=== PATIENT | male | born 1950 | race Caucasian/White ===

== ENCOUNTER → 2018-03-18 | Outpatient (CLI) | payer MEDICARE, OTHER ==
--- NOTE | 2018-03-18 08:22 | CT ---
EXAMINATION TYPE: CT angio chest DATE OF EXAM: 03/18/2018 COMPARISON: 08/17/2016 HISTORY: 67-year-old male Follow up to thoracic aortic aneurysm TECHNIQUE: Contiguous axial scanning of the chest performed with IV Contrast, patient injected with 1 00 mL of Isovue 370. Coronal/sagittal MIP reconstructions performed. 3-D reconstructions generated on a dedicated independent workstation. CT DLP: 291.4 mGycm Automated exposure control for dose reduction was used. FINDINGS: Heart is normal size without pericardial effusion. Some mild coronary vessel calcifications are noted . -Aortic root is ectatic at 3.9 cm (measured on coronal series). -The ascending aorta is borderline ectatic at 3.5 cm. -Conventional arch vessel branching anatomy. -The upper descending thoracic aorta measures 2.7 cm, unchanged. The lower descending thoracic aorta measures 2.3 cm, within normal limits. No thoracic lymphadenopathy by CT size criteria. Continued mild diffuse bronchial wall thickening, that could represent bronchitis or asthma, and some strandy opacity suggestive of scarring at the inferior lingula. No consolidation or pleural effusion . Visualized upper abdomen shows no gross abnormality. Bones: Mild endplate spondylosis mid to lower thoracic spine. IMPRESSION: MEASURED ON CORONAL SERIES, THE AORTIC ROOT IS ECTATIC AT 3.9 CM, STABLE. ADDITIONALLY, THERE IS S TABLE BORDERLINE ECTASIA OF THE ASCENDING AORTA AT 3.5 CM AND NO EVIDENCE FOR ANEURYSM.
== END | disposition home or self-care (01) ==
LOC: RADCTMAIN 06:16
PROVIDERS: ATTEND Internal Medicine Interventional Cardiology
DX: I77.810 Thoracic aortic ectasia (principal)
CPT/HCPCS: 82565; 84520; 71275; 36415; Q9967

== ENCOUNTER → 2020-03-29 | Outpatient (CLI) | payer MEDICARE ==
[2020-03-29 08:14] LABS: African American GFR (CKD) >90 (>60 ml/min/1.73 sqM); Blood Urea Nitrogen 17 mg/dL (9-20); Non-African American GFR(CKD) >90 (>60 ml/min/1.73 sqM)
--- NOTE | 2020-03-29 10:31 | CT ---
EXAMINATION TYPE: CT angio chest DATE OF EXAM: 03/29/2020 COMPARISON: 03/18/2018 HISTORY: 69-year-old male I71.2 Thoracic aortic aneurysm TECHNIQUE: Contiguous axial scanning of the chest performed with IV Contrast, patient injected with 1 00 mL of Isovue 370. Coronal/sagittal MIP reconstructions performed. 3-D reconstructions generated on a dedicated independent workstation. CT DLP: 230.7 mGycm Automated exposure control for dose reduction was used. FINDINGS: Heart normal size with stable prominent fluid extending up along the pericardial recess along the tra lyubov, axial image 18. As measured on coronal series, aortic root is mildly aneurysmal at 4.1 cm versus 3.9 cm, previously. (Refer to coronal image 35). Ascending aorta borderline ectatic at 3.5 cm, stable. Conventional arch vessel branching anatomy. Upper descending thoracic aorta approximately stable at 2.8 cm. No evidence for aortic dissection. No consolidation or pleural effusion. Visualized upper abdomen shows no gross abnormal value. Bones: No osseous destructive process. IMPRESSION: 1. As measured on coronal series, the aortic root is mildly aneurysmal at 4.1 cm versus 3.9 cm, previ ously. 2. Stable borderline ectasia of the ascending aorta 3.5 cm.
== END ==
LOC: RADCTMAIN 07:38
PROVIDERS: ATTEND Internal Medicine Interventional Cardiology
DX: I71.2 Thoracic aortic aneurysm, without rupture (principal)
CPT/HCPCS: 82565; 84520; 71275; 36415; Q9967

== ENCOUNTER → 2020-07-09 | Outpatient (CLI) | payer MEDICARE ==
--- NOTE | 2020-07-09 07:39 | US ---
EXAMINATION TYPE: US thyroid st tissue head/neck DATE OF EXAM: 07/09/2020 COMPARISON: Carotid 2013. CTA chest March 29, 2020 CLINICAL HISTORY: E04.2 NONTOXIC MULTINODULAR GOITER. Goiter, pt states no known thyroid issues GLAND SIZE: Right Lobe: 5.3 x 1.4 x 1.6 cm Overall Parenchyma: homogenous Left Lobe: 4.6 x 1.7 x 1.2 cm Overall Parenchyma: homogeneous Isthmus Thickness: 0.3 cm NODULES RIGHT: # of nodules measured on right: 1 1. 2.0 X 0.9 x 1.1 cm isoechoic solid nodule at the mid pole with poorly defined margins; This nod ule is wider than tall and shows intranodular vascularity. Prior size: 1.7 x 1.2 x 1.2 cm Bilateral neck scanned, no evidence of lymphadenopathy. Single right thyroid nodule. Homogeneous normal-sized thyroid with possible 2.0 cm anterior mid to lower pole isoechoic solid nodu le not significantly changed from 2014 ultrasound accounting for technical differences. IMPRESSION: As above. No new greater than 1 cm nodules.
== END | disposition home or self-care (01) ==
LOC: RADUSWWP 07:09
PROVIDERS: ATTEND Internal Medicine Endocrinology, Diabetes & Metabolism
DX: E04.1 Nontoxic single thyroid nodule (principal)
CPT/HCPCS: 76536

== ENCOUNTER → 2021-04-26 | Outpatient (CLI) | payer MEDICARE ==
[2021-04-26 07:45] LABS: African American GFR (CKD) >90 (>60 ml/min/1.73 sqM); Blood Urea Nitrogen 17 mg/dL (9-20); Non-African American GFR(CKD) 85 (>60 ml/min/1.73 sqM)
--- NOTE | 2021-04-26 09:10 | CT ---
EXAMINATION TYPE: CT angio chest DATE OF EXAM: 04/26/2021 COMPARISON: 03/29/2020 HISTORY: 70-year-old male follow up thoracic aneurysm TECHNIQUE: Contiguous axial scanning of the chest performed with IV Contrast, patient injected with 1 00 mL of Isovue 370. Coronal/sagittal MIP reconstructions performed. 3-D reconstructions generated on a dedicated independent workstation. CT DLP: 261.3 mGycm Automated exposure control for dose reduction was used. FINDINGS: Heart normal size and a pericardial effusion. Proximal LAD coronary artery calcifications. Aortic root measures 3.4 cm on axial series, upper limits of normal but measures 4.0 cm on coronal se jayleen. 4.1 cm, previously. Ascending aorta is ectatic at 3.7 cm versus 3.6 cm, previously. Conventional arch vessel branching anatomy. Upper descending thoracic aorta 2.7 cm, unchanged. The aorta at the thoracoabdominal junction borderline ectatic at 2.5 cm, unchanged. No evidence for aortic dissection. No evidence for thoracic lymphadenopathy by CT size criteria. Fluid attenuation extending along the i nferior margin of the great vessels and with a fingerlike extension along the right tracheobronchial angle likely fluid along a pericardial recess, unchanged. Minimal biapical pleural-parenchymal scarring. Mild diffuse bronchial wall thickening. Strandy atelectasis or scar inferior lingula. No consolidation or pleural effusion. Visualized upper abdomen shows no gross abnormal. Bones: Mild anterior endplate spondylosis mid to lower thoracic spine. IMPRESSION: 1. RELATIVELY STABLE ANEURYSMAL AORTIC ROOT AT 4.0 CM VERSUS 4.1 CM, PREVIOUSLY (MEASURED ON CORONAL SERIES). 2. ASCENDING AORTA ECTATIC AT 3.7 CM VERSUS 3.6 CM, PREVIOUSLY, NOT SIGNIFICANTLY CHANGED. 3. BORDERLINE ECTATIC AORTA AT THE THORACOABDOMINAL JUNCTION AT 2.5 CM, UNCHANGED.
== END | disposition home or self-care (01) ==
LOC: RADCTMAIN 07:05
PROVIDERS: ATTEND Internal Medicine Interventional Cardiology
DX: I71.2 Thoracic aortic aneurysm, without rupture (principal)
CPT/HCPCS: 82565; 84520; 71275; 36415; Q9967

== ENCOUNTER → 2022-04-24 | Outpatient (CLI) | payer MEDICARE ==
[2022-04-24 09:01] LABS: African American GFR (CKD) >90 (>60 ml/min/1.73 sqM); Blood Urea Nitrogen 18 mg/dL (9-20); Non-African American GFR(CKD) 87 (>60 ml/min/1.73 sqM)
--- NOTE | 2022-04-24 11:22 | CT ---
EXAMINATION TYPE: CT angio chest CT DLP: 556.60 mGycm, Automated exposure control for dose reduction was used. DATE OF EXAM: 04/24/2022 10:34 AM COMPARISON: CTA chest 04/26/2021. CLINICAL INDICATION:Male, 71 years old with history of I71.2 thoracic aortic aneurysm; Thoracic Aorti c Aneurysm TECHNIQUE/CONTRAST: CTA scan of the thorax is performed without and with IV Contrast, patient injected with 100 mL of Iso catalina 370, coronal and sagittal reformats reviewed. MIP and 3-D images are created and reviewed. FINDINGS: Lungs/Pleura: Minimal biapical pleural parenchymal scarring. Mild diffuse bronchial wall thickening. Stranding atelectasis and/or scarring in the inferior lingula. No focal consolidation, pneumothorax, or pleural effusion. Airway: Large airways are patent. Heart: Heart is within normal limits for size. No pericardial effusion. Coronary artery calcification s. Vasculature: No evidence for intramural hematoma. Aortic root measures 3.4 cm on axial series which i s the upper limits of normal but measures 4.0 cm on coronal series, previously 4.0 cm. Ascending aort a is ectatic measuring up to 3.6 cm, previously 3.7 cm. Conventional arch vessel branching anatomy. U pper descending thoracic aorta measures up to 2.6 cm which is relatively unchanged. The aorta at the thoracoabdominal junction is borderline ectatic at 2.4 cm, previously 2.5 cm. No evidence for aortic dissection. Mediastinum: No gross evidence of adenopathy. Musculoskeletal: No acute osseous abnormalities Soft Tissues: Unremarkable. Lower neck: Stable subcentimeter hypodense nodule in the right thyroid lobe.. Upper Abdomen: No significant findings. IMPRESSION: * Stable aneurysmal aortic root at 4.0 cm, previously 4.0 cm. * Ascending thoracic aorta is ectatic at 3.6 cm, stable. * Stable borderline ectatic aorta at the thoracoabdominal junction at 2.4 cm.
== END | disposition home or self-care (01) ==
LOC: RADCTMAIN 08:18
PROVIDERS: ATTEND Internal Medicine Interventional Cardiology
DX: I71.2 Thoracic aortic aneurysm, without rupture (principal)
CPT/HCPCS: 82565; 84520; 71275; 36415; Q9967

== ENCOUNTER → 2023-03-23 | Outpatient (CLI) | payer MEDICARE ==
--- NOTE | 2023-03-23 18:24 | US ---
EXAMINATION TYPE: US thyroid st tissue head/neck DATE OF EXAM: 03/23/2023 COMPARISON: 07/09/2020 CLINICAL INDICATION: Male, 72 years old with history of E04.2 NONTOXIC MULTINODULAR GOITER; F/U previ ous GLAND SIZE: Right Lobe: 4.8 x 1.7 x 1.3 cm Overall Parenchyma: homogenous Left Lobe: 4.2 x 1.5 x 0.9 cm Overall Parenchyma: homogeneous Isthmus Thickness: 0.2 cm NODULES RIGHT: # of nodules measured on right: 1 1. 1.9 X 1.1 x 1.5 cm, lower, solid or almost completely solid, isoechoic nodule, which is wider th an tall, with ill-defined margins, without echogenic foci. Prior size: 2.0 x 0.9 x 1.1 cm LEFT: # of nodules measured on left: 0 ISTHMUS: # of nodules measured in the isthmus: 0 Conference Planner notes: Bilateral neck scanned, no evidence of lymphadenopathy. Slight increase in size of right lobe nodule. IMPRESSION: A 1.9 x 1.5 cm TR3 solid nodule in the right lobe (versus 2.0 x 1.1 cm previously) is relatively anne lar to minimally increased in size. FNA if it reaches 2.5 cm.
== END | disposition home or self-care (01) ==
LOC: RADUSWWP 15:56
PROVIDERS: ATTEND Internal Medicine Endocrinology, Diabetes & Metabolism
DX: E04.2 Nontoxic multinodular goiter (principal)
CPT/HCPCS: 76536

== ENCOUNTER → 2023-12-19 | Outpatient (CLI) | payer MEDICARE ==
[2023-12-19 07:07] LABS: African American GFR (CKD) >90 (>60 ml/min/1.73 sqM); Blood Urea Nitrogen 17 mg/dL (9-20); Non-African American GFR(CKD) >90 (>60 ml/min/1.73 sqM)
--- NOTE | 2023-12-20 13:13 | CT ---
EXAMINATION TYPE: CT angio chest DATE OF EXAM: 12/19/2023 7:50 AM COMPARISON: 04/24/2022 HISTORY: THORACIC ANEURYSM CT DLP: 766.5 mGycm Automated exposure control for dose reduction was used. CONTRAST: CTA scan of the thorax is performed with IV Contrast, patient injected with 100 mL of Isovue 370, pul monary embolism protocol. . FINDINGS: AORTA: The previously noted 4.0 cm borderline ectasia or aneurysm of the aortic root is stable. There is calcification of the aortic valve. Mild atherosclerotic change of the aorta. Ascending aorta brayan ures maximum dimension 3.6 cm and is LUNGS: The lungs are grossly clear, there is no concerning parenchymal mass or nodule identified. T here is no pleural effusion or pneumothorax seen. The tracheobronchial tree is patent. Apical pleura l thickening. A subpleural 1 to 2 mm pulmonary micronodules too small to characterize but likely dru gn. Subsegmental posterior dependent atelectasis. MEDIASTINUM: There is satisfactory enhancement of the pulmonary artery and its branches, there is no CT evidence for pulmonary embolism. There are no greater than 1 cm hilar or mediastinal lymph nodes. A trace pericardial effusion is seen. Mild coronary artery calcification. Subcentimeter bilateral hi lar and mediastinal lymphadenopathy. OTHER: Small hiatal hernia. Hypertrophic and degenerative changes of the spine. IMPRESSION: 1. Stable aortic root ectasia\borderline aneurysm measuring 4.0 cm. 2. coronary artery calcification. 3. Benign appearing subpleural 1 to 2 mm bilateral pulmonary micronodules. Recommend 12 month follow- up CT scan
== END | disposition home or self-care (01) ==
LOC: RADCTMAIN 06:30
PROVIDERS: ATTEND Internal Medicine Interventional Cardiology
DX: I71.20 Thoracic aortic aneurysm, without rupture, unspecified (principal); I25.10 Atherosclerotic heart disease of native coronary artery without angina pectoris; R91.8 Other nonspecific abnormal finding of lung field
CPT/HCPCS: 82565; 84520; 71275; 36415; Q9967

== ENCOUNTER → 2024-06-06 | Outpatient (CLI) | payer MEDICARE ==
[2024-06-06 09:38] LABS: African American GFR (CKD) >90 (>60 ml/min/1.73 sqM); Blood Urea Nitrogen 20 mg/dL (9-20); Non-African American GFR(CKD) 86 (>60 ml/min/1.73 sqM)
--- NOTE | 2024-06-06 10:54 | CT ---
EXAMINATION TYPE: CT angio chest CT DLP: 799.3 mGycm, Automated exposure control for dose reduction was used. DATE OF EXAM: 06/06/2024 10:18 AM COMPARISON: CTA chest 12/19/2023, 04/24/2022, 04/26/2021 CLINICAL INDICATION:Male, 73 years old with history of I71.20 THORACIC AA WITHOUT RUPTURE; ANEURYSM TECHNIQUE/CONTRAST: Noncontrast CT of the chest was performed followed by CTA scan of the thorax performed with IV Contra st, patient injected with 100 mL of Isovue 370. MIP and 3-D images are created on a separate workstat ion and reviewed. FINDINGS: Lungs/Pleura: Minimal biapical pleural parenchymal scarring. Mild diffuse bronchial wall thickening. Stranding atelectasis and/or scarring in the inferior lingula. No focal consolidation, pneumothorax, or pleural effusion. No clinically significant pulmonary nodules. Airway: Large airways are patent. Heart: Heart is within normal limits for size. No pericardial effusion. Coronary artery calcification s. Vasculature: No evidence for intramural hematoma or dissection. Aortic root measures 4.0 cm, previous ly 4.0. Ascending aorta is ectatic measuring up to 3.6 cm, previously 3.6 cm. Conventional arch vesse l branching anatomy. Upper descending thoracic aorta measures up to 2.5 cm, previously 2.4 cm. The ao rta at the thoracoabdominal junction is stable at 2.4 cm, previously 2.2 cm. No evidence for aortic d issection. Mediastinum: No evidence of adenopathy. Musculoskeletal: No acute osseous abnormalities Soft Tissues: Unremarkable. Lower neck: Stable subcentimeter hypodense nodule in the right thyroid lobe.. Upper Abdomen: No significant findings. IMPRESSION: * Stable borderline aneurysmal aortic root at 4.0 cm. * Stable ascending thoracic aorta ectasia measuring 3.6 cm. [facility], , 06/06/2024 10:52 AM
== END | disposition home or self-care (01) ==
LOC: RADCTMAIN 08:53
PROVIDERS: ATTEND Internal Medicine Interventional Cardiology
DX: I77.810 Thoracic aortic ectasia (principal)
CPT/HCPCS: 36415; 71275; 82565; 84520